=== PATIENT | male | born 2000 | race Caucasian/White ===

== ENCOUNTER 2024-05-15 17:09 | Emergency (ER) | payer BC, SELFPAY ==
--- NOTE | ~2024-05-15 | XR_ITS ---
CHEST RADIOGRAPH, PA AND LATERAL CLINICAL HISTORY: cough . COMPARISON: None available TECHNIQUE: PA and lateral views of the chest. FINDINGS The cardiomediastinal silhouette is unremarkable. Increased interstitial markings within the left mid to upper lung field for which an early infiltrate is suspected. The remainder of the lungs are clear. IMPRESSION: Early infiltrate within the left mid to upper lung field Reviewed, dictated and finalized at location A. [facility]
--- NOTE | 2024-05-15 17:16 | ED.URI ---
HPI - URI/Sore Throat General Chief Complaint: Upper Respiratory Infection Stated Complaint: cough Time Seen by Provider: 05/15/24 18:44 Focused HPI: 23-year-old male with no significant past medical history presents to the ED for cough and congestion for the past couple of weeks, worsening over the past day. Reports subjective fever, body aches. Went to urgent care a couple days ago and was prescribed prednisone and benzonatate which she has been taking without improvement. No nausea vomiting, no diarrhea. GENERAL: Well-appearing, well-nourished, and in no acute distress. HEAD: Normocephalic, atraumatic. CHEST: Clear to auscultation. ?No respiratory distress. HEART: Regular rate and rhythm.? NEURO: ?Alert and oriented x3. Patient screened in triage and initial orders placed.? ?Additional care and disposition to be based upon?diagnostic testing and treatment. History of Present Illness HPI Narrative: Agree with the above HPI. Related Data Allergies Allergy/AdvReac Type Severity Reaction Status Date / Time No Known Allergies Allergy Verified 05/15/24 17:12 Review of Systems Review of Systems: All systems reviewed & are unremarkable except as noted in HPI and below Exam Narrative: GENERAL: Well-appearing, well-nourished, and in no acute distress. HEAD: Normocephalic, atraumatic. EYES: EOMI. ENT: Nares clear, no rhinorrhea or epistaxis. Mucous membranes moist. NECK: Supple. CHEST: Clear to auscultation. No respiratory distress. HEART: Regular rate and rhythm. No murmur heard. Normal peripheral pulses. ABDOMEN: Soft, nontender, nondistended, normal active bowel sounds. EXTREMITIES: Normal range of motion. No edema. SKIN: Warm, dry, no rash. NEURO: No focal deficits. Alert and oriented x3 MDM - URI/Sore Throat MDM Narrative Medical decision making narrative: 23-year-old male presents emergency department for a cough for several weeks, worsening over the past day. Triage vitals remarkable for fever 100.8. Patient was given Tylenol. Exam is significant for the above. Viral swabs positive for influenza A. Chest x-ray shows findings concerning for early infiltrate within the left mid upper lung field. Patient was updated on results. No hypoxia, no tachycardia, no significant risk factors for worsening pneumonia. Feel he is safe to be discharged home. He was given Augmentin and azithromycin in the ED and remainder sent to pharmacy. Discussed supportive care and return precautions. He is agreeable with the plan verbalized understanding. Discharged in stable condition Lab Data Labs: Lab Results 05/15/24 Range/Units 17:18 Influenza A (RT-PCR) Positive A (Negative) Influenza B (RT-PCR) Negative (Negative) RSV (RT-PCR) Negative (Negative) SARS-CoV-2 RNA (RT-PCR) Negative (Negative) Discharge Plan Discharge Clinical Impression: Influenza A CAP (community acquired pneumonia) Qualifiers: Laterality: left Lung location: upper lobe of lung Qualified Code(s): J18.9 - Pneumonia, unspecified organism Patient Disposition: Home, Self-Care Condition: Stable Instructions: Antibiotic Form, Influenza (ED), Community Acquired Pneumonia (DC) Additional Instructions: Take antibiotics as directed. Rest, drink plenty fluids, follow-up with primary care provider. Return emergency department if you develop new or worsening symptoms. Patient Language: Setswana Prescriptions: New amoxicillin-pot clavulanate 875-125 mg tablet 1 tablet PO Q12H Qty: 14 0RF azithromycin 250 mg tablet See Rx Instructions .ROUTE .COMPLEX Qty: 6 0RF Rx Instructions: For 250 mg dose pack: take 500 mg today (day 1), then 250 mg for 4 days (days 2-5) guaifenesin 100 mg/5 mL liquid 200 mg PO Q4H PRN (Reason: cough) Qty: 1000 0RF Follow-up/Referrals: PHYSICIAN,SET UP MOLD TECHNICIAN [Primary Care Provider] - Arnel Flower MD [Physician] -
[2024-05-15 17:59] LABS: Influenza A QL RT-PCR Positive (Negative); Influenza B QL RT-PCR Negative (Negative); RSV RNA, RT-PCR Negative (Negative); SARS-CoV-2 RNA PCR Negative (Negative)
[2024-05-15 18:57] VITALS: BP 115/61; PULSE 95; RESP 16; TEMP 38.2; O2SAT 100
[2024-05-15] MEDS: ACETAMINOPHEN 500 MG TABLET 1000 MG PO (19:04)
[2024-05-15] MEDS: AZITHROMYCIN 250 MG TABLET 500 MG PO (19:04)
[2024-05-15] MEDS: AMOXICILLIN/CLAVULANATE K 875-125 MG TAB 1 TABLET PO (19:04)
== END 2024-05-15 19:02 | disposition home or self-care (01) ==
PROVIDERS: Emergency Provider Physician Assistant
DX: J10.1 Influenza due to other identified influenza virus with other respiratory manifestations (principal); J10.00 Influenza due to other identified influenza virus with unspecified type of pneumonia; Z20.822 Contact with and (suspected) exposure to COVID-19
CPT/HCPCS: 71046; 87637; 99283; A9270